=== PATIENT | male | born 1965 | race Caucasian/White ===

== ENCOUNTER 2016-06-04 07:03 | Emergency (ER) | payer MEDICAID ==
[2016-06-04] MEDS ORDERED: ONDANSETRON 4 MG VIAL ONE (07:42)
[2016-06-04] MEDS ORDERED: SODIUM CHLORIDE 0.9% 1,000 ML ONE (07:42)
== END 2016-06-04 08:40 | disposition home or self-care (01) ==
LOC: ER 07:03
DX: A08.4 Viral intestinal infection, unspecified (principal)
CPT/HCPCS: 36415; 80053; 81003; 83690; 85025; 87804; 96374